=== PATIENT | female | born 1955 | race Caucasian/White ===

== ENCOUNTER → 2018-02-09 | Day surgery (SDC) | payer MEDICAID ==
[2015-04-22 02:01] VITALS: BP 138/79
[~2018-02-09] MED LIST: AMOXICILLIN 50500 MG PO; CELEXA20 MG PO; CIPRO 250MG TA250 MG PO; DANTHRON75 MG PO; DETROL LA2 PO; DICLOFENAC SOD100 M1 PO; DICLOFENAC SOD75 MG PO; FLUTICASON0.05 MG/Ac NS; GABAPENTIN300 MG PO; LEVOTHYROXIN0.125 MG PO; LOMOTIL 0.025 M1 TAB PO; LORAZEPAM0.5 MG PO; MAG-OX 400400 MG PO; METFORMIN500 MG PO; NORCO 325 MG-51 TAB PO; PRILOSEC 20MG20 MG PO; SINGULAIR10 MG PO; ST. JOSEPH81 M2 PO; VENTOLIN0.09 MG PO; VESICARE10 MG PO; ZESTRIL10 MG PO; [UNRECOGNIZED DRUG - OTHER] PO
== END ==
LOC: MSO 08:40
DX: Z12.11 Encounter for screening for malignant neoplasm of colon (principal); Z83.71 Family history of colonic polyps; D12.3 Benign neoplasm of transverse colon; Z79.82 Long term (current) use of aspirin; I10 Essential (primary) hypertension; J44.9 Chronic obstructive pulmonary disease, unspecified; K21.9 Gastro-esophageal reflux disease without esophagitis; G47.33 Obstructive sleep apnea (adult) (pediatric); F32.9 Major depressive disorder, single episode, unspecified; K58.9 Irritable bowel syndrome, unspecified; E11.9 Type 2 diabetes mellitus without complications; E07.9 Disorder of thyroid, unspecified; E66.01 Morbid (severe) obesity due to excess calories
CPT/HCPCS: 00811; J2704; J7120